=== PATIENT | male | born 1950 | race Caucasian/White ===

== ENCOUNTER 2022-06-25 20:47 | Emergency (ER) | payer BC ==
[~2022-06-25] VITALS: Ht 172.7 cm; Wt 98.6 kg
[~2022-06-25 20:47] MED LIST: AMIO200T61 PO; ASPI81TA52 PO; ATOR80TA PO; CEFD300C3 PO; CHOL500050 PO; EMPA10TA PO; FLO0.4C PO; HYDR50TA65 PO; LACT1CAP26 PO; LIPA1CAP8 PO; METO100T14 PO; METR-159 PO; MULT-1085 PO; OLAN5TAB5 PO; PANT40TA54 PO; SACU1TAB7 PO; SERT100T PO; SPIR25TA5 PO; SUCR1TAB34 PO; TICA90TA PO; TRAZ-251 PO; VALB80CA PO
[2022-06-25 20:51] VITALS: BP 123/79
[2022-06-25 21:17] LABS: CLARITY,URINE CLEAR (Clear); COLOR,URINE YELLOW (Yellow); GLUCOSE, URINE >=1000 mg/dl (Neg); KETONES,URINE NEGATIVE (Neg); LEUKOCYTE ESTERASE ,URINE NEGATIVE (Neg); NITRITES, URINE NEGATIVE (Neg); OCCULT BLOOD,URINE NEGATIVE (Neg); PROTEIN,URINE NEGATIVE (Neg); UROBILINOGEN,URINE 0.2 E.U/dL (0.2-1.0)
[2022-06-25 21:17] LABS: BASOPHILS # (AUTO) 0.1 X10'3 (0-0.2); BASOPHILS % (AUTO) 0.7 % (0-1); EOSINOPHILS # (AUTO) 0.1 X10'3 (0-0.9); EOSINOPHILS % (AUTO) 1.4 % (0-6); HEMATOCRIT 41.5 % (42.0-52.0); HEMOGLOBIN 13.8 g/dl (14.0-17.9); LYMPHOCYTES # (AUTO) 1.4 X10'3 (1.1-4.8); LYMPHOCYTES % (AUTO) 15.1 % (21-51); MEAN CORPUSCULAR HEMOGLOBIN 32.9 PG (27.0-31.0); MEAN CORPUSCULAR HGB CONC 33.3 g/dL (33.0-36.5); MEAN CORPUSCULAR VOLUME 98.9 FL (78-98); MONOCYTES % (AUTO) 10.7 % (2-12); NEUTROPHILS # (AUTO) 6.7 X10'3 (1.8-7.7); NEUTROPHILS % (AUTO) 72.1 % (42-75); PLATELET COUNT 285 X10'3 (140-440); RED CELL DISTRIBUTION WIDTH 13.3 % (11.5-14.5); WHITE BLOOD COUNT 9.3 X10'3 (4.5-11.0)
[2022-06-25 21:22] LABS: SQUAMOUS EPITHELIAL CELL,UR FEW /LPF (FEW); UA COLLECTION TYPE OTHER
[2022-06-25 21:23] LABS: BACTERIA,URINE NONE SEEN /HPF (Neg); RBC,URINE 0-2 /HPF (0-2); WBC,URINE 0-4 /HPF (0-4)
[2022-06-25] MEDS ORDERED: pantoprazole 40mg Tablet.DR PO ONE (21:25)
[2022-06-25] MEDS ORDERED: LIDOcaine Viscous 15ml cup MM ONE (21:25)
[2022-06-25] MEDS ORDERED: mag hydrox/Alum hydrox/simeth 30ml oral suspension PO ONE (21:25)
[2022-06-25 21:29] LABS: ALANINE AMINOTRANSFERASE 52 U/L (12-78); ALBUMIN 3.9 G/DL (3.4-5.0); ALBUMIN/GLOBULIN RATIO 1.3 (1.1-1.5); ALKALINE PHOSPHATASE 70 IU/L (46-116); ANION GAP 9 (8-16); ASPARTATE AMINO TRANSFERASE 42 U/L (10-37); BILIRUBIN,TOTAL 0.4 MG/DL (0.1-1.0); BLOOD UREA NITROGEN 19 MG/DL (7-18); CALCIUM 8.5 MG/DL (8.5-10.1); CHLORIDE 101 MMOL/L (99-107); CREATININE 1.36 MG/DL (0.60-1.10); GLUCOSE 113 MG/DL (70-104); LIPASE 136 U/L (73-393); SODIUM 135 MMOL/L (135-145); TOTAL CARBON DIOXIDE 25.1 MMOL/L (24-32); eGFR 52 ML/MIN
[2022-06-25 21:31] LABS: POTASSIUM 4.1 MMOL/L (3.5-5.1)
[2022-06-25 22:02] LABS: URINE AMPHETAMINE SCREEN POSITIVE (Neg); URINE BARBITUATE SCREEN NEGATIVE (Neg); URINE BENZODIAZEPINES SCREEN NEGATIVE (Neg); URINE CANNABINOID SCREEN NEGATIVE (Neg); URINE COCAINE SCREEN NEGATIVE (Neg); URINE METHADONE SCREEN NEGATIVE (Neg); URINE OPIATE SCREEN NEGATIVE (Neg); URINE PHENCYCLIDINE SCREEN NEGATIVE (Neg)
[2022-06-25] MEDS ORDERED: PANT-47 PO (22:14)
[2022-06-25] MEDS ORDERED: HYDROcodone/acetaminophen 5mg/325mg tablet PO ONE (22:15)
[2022-06-25] MEDS ORDERED: ondansetron 4mg rapidly disintigrating tab PO ONE (23:00)
[2022-06-25] MEDS ORDERED: ONDA4TAB12 PO (23:02)
== END 2022-06-25 23:17 | disposition home or self-care (01) ==
LOC: ER 20:48
DX: K29.00 Acute gastritis without bleeding (principal); I25.10 Atherosclerotic heart disease of native coronary artery without angina pectoris; I10 Essential (primary) hypertension; K21.9 Gastro-esophageal reflux disease without esophagitis; E11.9 Type 2 diabetes mellitus without complications; Z95.0 Presence of cardiac pacemaker; Z88.0 Allergy status to penicillin; Z88.5 Allergy status to narcotic agent; Z79.82 Long term (current) use of aspirin; Z79.899 Other long term (current) drug therapy
CPT/HCPCS: 36415; 71045; 80053; 80305; 81001; 83690; 84484; 85025; 93005; 99285

== ENCOUNTER 2022-06-25 23:54 | Emergency (ER) | payer BC ==
[~2022-06-25] VITALS: Ht 172.7 cm; Wt 98.6 kg
[~2022-06-25 23:54] MED LIST changes: +ONDA4TAB12 PO; +PANT-47 PO
[2022-06-26] MEDS ORDERED: metoclopramide 10mg tablet PO ONE (00:20)
[2022-06-26] MEDS ORDERED: LORazepam 1 MG tablet PO ONE (00:20)
--- NOTE | 2022-06-26 02:02 | NUR ---
Patient reports medications provided has resolved nausea but still reports same abdominal pain as previous complaint.
[2022-06-26 02:15] VITALS: BP 96/59
== END 2022-06-26 02:23 | disposition home or self-care (01) ==
LOC: ER 23:55
DX: R11.2 Nausea with vomiting, unspecified (principal); F15.10 Other stimulant abuse, uncomplicated; I10 Essential (primary) hypertension; K21.9 Gastro-esophageal reflux disease without esophagitis; F17.200 Nicotine dependence, unspecified, uncomplicated; Z88.0 Allergy status to penicillin; Z88.5 Allergy status to narcotic agent
CPT/HCPCS: 36415; 84484; 93005; 99284